=== PATIENT | female | born 1955 | race African-American/Black ===

== ENCOUNTER 2016-07-18 12:40 | Emergency (ER) ==
[2016-07-18 13:05] VITALS: BP 145/103
--- NOTE | 2016-07-18 15:03 | PROVIDER DOCUMENTATION ---
HPI-EENT General - General Source: patient <AmnaAnnemarie - Last Filed: 07/18/16 16:04> - History of Present Illness-EENT General EENT Location: reports: nose, throat, facial Quality of Pain: reports: pressure Severity: reports: mild Onset/Duration: reports: 3 days ago Timing: reports: still present, getting worse Prearrival Treatment: Initiated no prearrival treatment Associated Symptoms: reports: cough, facial pain/swelling <MedinaMitra Jonatan. - Last Filed: 07/18/16 19:35> - General Chief Complaint: Cold Symptoms Stated Complaint: COUGH Time Seen by Provider: 07/18/16 15:11 Allergies/Adverse Reactions: Patient Allergies Allergy/AdvReac Type Severity Reaction Status Date / Time No Known Allergies Allergy Verified 02/18/16 10:14 Home Medications: Home Medication List Medication Instructions Recorded Confirmed Last Taken Type Hydrocodone/APAP 10 mg/325 mg 1 each PO Q4H PRN #15 tablet 02/25/16 Unknown Rx [[facility]-10] Amoxicillin [Amoxil] 875 mg PO Q12HR #20 tablet 07/18/16 Unknown Rx Methylprednisolone [Medrol Dosepak] 4 mg PO DIRECTED #1 package 07/18/16 Unknown Rx - History of Present Illness-EENT General Nature of Presenting Problem: 61 yo F presents to the ER with complaint of cold symptoms and sinus pressure/ drainage. (Annemarie Woo) Review of Systems - Adult - REVIEW OF SYSTEMS - ADULT Constitutional: denies: chills, fever Ears, Nose, Mouth & Throat: reports: other (sinus pressure). denies: ear pain, throat pain Cardiovascular: denies: chest pain, palpitations Respiratory: reports: cough. denies: shortness of breath Gastrointestinal: denies: diarrhea, nausea, vomiting <Annemarie Woo - Last Filed: 07/18/16 16:04> Past History - Adult - PAST MEDICAL HISTORY-ADULT Review of Records: reports: Nursing Assessment Review, Medications Reviewed - PRIOR SURGERIES/PROCEDURES Surgical/Procedure History: reports: other (nephrectomy) - IMMUNIZATION STATUS Childhood Immunizations: See Nurse Assessment Flu Vaccine: See Nurse Assessment <Annemarie Woo - Last Filed: 07/18/16 16:04> Physical Exam- EENT - Physical Exam EENT Initial Vital Signs Reviewed: Yes General Appearance: appears well, alert, no apparent distress Eye Exam: bilateral eye: normal inspection, PERRL, EOMI Nasal Exam: sinus tenderness Throat Exam: other (pharyngeal erythematous) Respiratory: lungs clear, normal breath sounds, no respiratory distress Cardiovascular: normal peripheral pulses Back Exam: normal inspection Extremity: normal gait Integumentary: normal color, normal turgor, warm/dry Neurologic: grossly normal Psych/Mental Status: normal mood/affect, normal thought content, normal thought process, oriented x 3 <Mitra Haney - Last Filed: 07/18/16 19:35> Progress <Annemarie Woo - Last Filed: 07/18/16 16:04> <Mitra Haney. - Last Filed: 07/18/16 19:35> - PLAN OF CARE/RESULTS Progress/Plan/Lab Results: 1515-Discussed results/dx/tx/discharge and follow up instructions with patient; he verbalizes understanding. Laboratory Tests 07/18/16 13:00 Influenza A (Rapid) NEGATIVE Influenza B (Rapid) NEGATIVE Orders Category Date Time Status Flu [INFLUENZA SCREEN PL] Stat Lab 07/18/16 13:00 Completed Vital Signs - 24 hr 07/18/16 13:03 Temperature 98 F Pulse Rate 84 Respiratory 18 Rate Blood Pressure 145/103 O2 Sat by Pulse 98 Oximetry (MedinaAugustMaty) Departure <Annemarie Woo - Last Filed: 07/18/16 16:04> - Departure Time of Disposition Order: 15:19 Certified Medical Emergency: Emergent <MedinaAugust. - Last Filed: 07/18/16 19:35> - Departure DIAGNOSIS: Post-nasal drip, Cough Sinusitis, acute Qualifiers: Sinusitis location: unspecified location Recurrence: non-recurrent Qualified Code(s): J01.90 - Acute sinusitis, unspecified Disposition: HOME 01 Condition: Good Additional Instructions: Follow up with primary care doctor. Take medications as prescribed. Use an over the counter saline nasal spray. ED Follow Up Instructions: You have been treated by a care provider in the Emergency Department. These instructions are being provided to you so you can have an understanding of how to care for yourself upon discharge. Upon discharge from the Emergency Department, you are responsible for making arrangements for follow-up care by a physician of your choice. Take all prescribed medications as directed. Return to the Emergency Department immediately for any new or worsening symptoms. You may call the Physician Referral phone number at [phone] to obtain a list of Physicians who are taking new patients. Prescriptions: Amoxicillin [Amoxil] 875 mg PO Q12HR #20 tablet Methylprednisolone [Medrol Dosepak] 4 mg PO DIRECTED #1 package Referrals: None,PCP [Primary Care Provider] - Kelly Chew MD [STAFF PHYSICIAN] - Forms: Return to School/Parent Work Instructions: Amoxicillin capsules or tablets, Sinusitis, Adult, Cough, Adult, Methylprednisolone tablets Attestation - Scribe Verification/Attestation Scribe:: Annemarie Woo Acting as Scribe for:: Mitra Haney Scribe documention review:: This chart was documented by a scribe and accurately reflects the service the provider performed and the decisions made by the provider. <Annemarie Woo - Last Filed: 07/18/16 16:04> - Physician/ RHEA Attestation Patient care was provided by Advanced Practice Provider:: Yes Advanced Practice Provider:: Mitra Haney Advanced Practice Provider documentation review:: The Mid-level provider documentation, treatment plan and medical decision making was reviewed by the physician who agrees with all treatment and medical decision making by the MLP. <Mitra Haney - Last Filed: 07/18/16 19:35> Physician Attestation
== END 2016-07-18 15:31 | disposition home or self-care (01) ==
LOC: P.ED 12:40
DX: J01.90 Acute sinusitis, unspecified (principal); R05 Cough; R09.82 Postnasal drip
CPT/HCPCS: 87804; 99283

== ENCOUNTER 2016-08-05 11:35 | Emergency (ER) ==
[2016-08-05] MEDS ORDERED: NORCO-10 PO ONE (12:33)
[2016-08-05] MEDS ORDERED: FLEXERIL PO ONE (12:33)
--- NOTE | 2016-08-05 12:45 | PROVIDER DOCUMENTATION ---
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 States she was walking down the stairs, got to the second to last stair, and the sock slipped. /the right ankle turned inwards and having swelling and pain in the ankle now. Has not been able to bare weight on the ankle. Denies hitting head, loc or other injuries. Pain on the medial and lateral aspects. Review of Systems - Adult - REVIEW OF SYSTEMS - ADULT Constitutional: reports: no symptoms reported. denies: chills, fever, fatique Eyes: reports: no symptoms reported. denies: decreased vision, blurred vision, double vision, eye pain Ears, Nose, Mouth & Throat: reports: no symptoms reported. denies: ear pain, nose pain, throat pain Cardiovascular: reports: no symptoms reported. denies: chest pain, palpitations Respiratory: reports: no symptoms reported. denies: cough, shortness of breath , wheezing Gastrointestinal: reports: no symptoms reported. denies: abdominal pain, diarrhea, nausea, vomiting Genitourinary: reports: no symptoms reported Musculoskeletal: reports: see HPI, joint pain, joint swelling. denies: bone pain, back pain Integumentary: reports: no symptoms reported. denies: rash Neurological: reports: no symptoms reported. denies: headache/migraines Psychiatric: reports: no symptoms reported Endocrine: reports: no symptoms reported Hematologic/Lymphatic: reports: no symptoms reported Allergic/Immunologic: reports: no symptoms reported All Other Systems: Reviewed and Negative Past History - Adult - PAST MEDICAL HISTORY-ADULT Review of Records: reports: Old Records Reviewed, Nursing Assessment Review, Medications Reviewed Major Childhood Illnesses: reports: denies history Cardiovascular: reports: denies history Respiratory: reports: denies history Gastrointestinal: reports: denies history Obstetrical/Gynecological: reports: denies history Genitourinary: reports: cancer (RCC s/p nephrectomy ) Musculoskeletal: reports: denies history Neurological: reports: denies history Endocrine/Immune: reports: denies history Other Conditions: reports: denies history - PRIOR SURGERIES/PROCEDURES Surgical/Procedure History: reports: other (nephrectomy) - IMMUNIZATION STATUS Childhood Immunizations: See Nurse Assessment Flu Vaccine: See Nurse Assessment - FAMILY HISTORY Family History: reviewed, not pertinent - SOCIAL HISTORY Smoking: denies Substance Use: none/never Alcohol Use Frequency: rarely Living Situation: family Physical Exam-Injury Related - Physical Exam-Injury Related Initial Vital Signs Reviewed: Yes General Appearance: appears well, alert, no apparent distress Eyes: PERRL/EOMI, pink conjunctivae Head, Ears, Nose, Mouth & Throat: normocephalic/atraumatic, moist mucous membranes Neck: non-tender, full range of motion, supple, normal inspection Respiratory: chest non-tender, lungs clear, normal breath sounds, no pleuratic chest pain, no respiratory distress, no accessory muscle use. negative: respiratory distress, decreased breath sounds, accessory muscle use, crackles, rales, rhonchi, stridor, wheezing Cardiovascular: normal peripheral pulses, regular rate, rhythm, no edema Peripheral Pulses: dorsalis-pedis (R): 2+, dorsalis-pedis (L): 2+ Extremity: other (right ankle: dec rom secondary to pain, , pulses 2+ equal and bilaterally. Neurovascularly intact.) Integumentary: normal color, warm/dry Neurologic: grossly normal, no motor/sensory deficits Psych/Mental Status: normal mood/affect, normal thought content, normal thought process, oriented x 3 - Glascow Coma Score Best Eye Response (Foster): (4) open spontaneously Best Verbal Response (Foster): (5) oriented Best Motor Response (Foster): (6) obeys commands Progress - PLAN OF CARE/RESULTS Progress/Plan/Lab Results: Vital Signs Temp Pulse Resp BP Pulse Ox 08/05/16 14:49 97.0 F L 70 18 156/96 100 08/05/16 11:41 98 F 87 18 137/75 100 No Known Allergies Allergy (Verified 02/18/16 10:14) Hydrocodone/APAP 10 mg/325 mg [Sims-10] 1 each PO Q6H PRN PRN #20 tablet Orders Category Date Time Status Crutches DIRECTED Care 08/05/16 14:07 Active OCL Splint DIRECTED Care 08/05/16 13:50 Active ANKLE COMPLETE RIGHT [RAD] Stat Exams 08/05/16 11:46 Completed ANKLE COMPLETE RIGHT [RAD] Stat Exams 08/05/16 13:40 Completed Bupivacaine Pf 0.5% [Marcaine 0.5% Pf] Med 08/05/16 12:55 Discontinued 10 ml INJ NOW ONE Cyclobenzaprine [Flexeril] Med 08/05/16 12:33 Discontinued 10 mg PO NOW ONE Hydrocodone/APAP 10 mg/325 mg [Sims-10] Med 08/05/16 12:33 Discontinued 1 each PO NOW ONE Hydromorphone [Dilaudid] Med 08/05/16 12:56 Discontinued 2 mg IM NOW ONE - XRAY 1 XRAY: Right XRAY Study: Ankle Impression: Abnormal (fracture and dislocation with 20 degrees of displacement of the distal fibula, Dr. Wagner, radiology) 2 XRAY: Right XRAY Study: Ankle Impression: Abnormal (fracture of distal fibula, dilcoation reduced per Dr. Guevara ER prelim) - CONSULTS/PCP/HOSPITALIST Notification #1 *Consult/PCP/Hospitalist*: Dr. Caban, ortho Time Discussed: 12:58 Reason/Comments: fracture dislocation Consult Disposition: F/U in office (reduce dislocation and splint, f/u in office.) Procedures - SPLINTING Right Lower Extremity Pre-Procedure Neurovascular Exam: Intact Splint Application (Hand-Made): Orthoglass, Posterior OCL, Stir-Up Applied By: ED Nurse Assisted By: ED Nurse Post Procedure Neurovascular Exam: Intact Procedure Comment: crutches given - DISLOCATION REDUCTION Right Ankle Time-Out Verification Completed?: Yes Pre-Procedure Neurovascular Exam: Intact Conscious Sedation: No Reduction Attempts: 1 Post Procedure Neurovascular Exam: Intact Post Reduction Film: Deformity Reduced (dislocation reduced per Dr. Guevara) Post Reduction Splint Applied?: Yes Procedure Comment: hematoma block performed with Marcaine 0.5 % 10 mL Departure - Departure Time of Disposition Order: 14:09 DIAGNOSIS: Closed fracture of distal end of fibula Qualifiers: Encounter type: initial encounter Fracture morphology: other fracture Laterality: right Qualified Code(s): S82.831A - Other fracture of upper and lower end of right fibula, initial encounter for closed fracture Dislocation of distal end of right tibia Qualifiers: Encounter type: initial encounter Qualified Code(s): S93.04XA - Dislocation of right ankle joint, initial encounter Fall Qualifiers: Encounter type: initial encounter Qualified Code(s): W19.XXXA - Unspecified fall, initial encounter Disposition: HOME 01 Certified Medical Emergency: Emergent Condition: Stable Additional Instructions: Remain non-weight baring Follow up with Dr. Caban, orthopedic ED Follow Up Instructions: You have been treated by a care provider in the Emergency Department. These instructions are being provided to you so you can have an understanding of how to care for yourself upon discharge. Upon discharge from the Emergency Department, you are responsible for making arrangements for follow-up care by a physician of your choice. Take all prescribed medications as directed. Return to the Emergency Department immediately for any new or worsening symptoms. You may call the Physician Referral phone number at [phone] to obtain a list of Physicians who are taking new patients. Prescriptions: Hydrocodone/APAP 10 mg/325 mg [Sims-10] 1 each PO Q6H PRN PRN #20 tablet PRN Reason: Pain Referrals: None,PCP [Primary Care Provider] - Jairo Caban MD [STAFF PHYSICIAN] - Instructions: Acetaminophen; Hydrocodone tablets or capsules, Fibular Fracture , Ankle, Adult, Undisplaced, Treated with Immobilization Attestation - Physician/ RHEA Attestation Patient care was provided by Advanced Practice Provider:: Yes Advanced Practice Provider:: Ernestina Barron Advanced Practice Provider documentation review:: The Mid-level provider documentation, treatment plan and medical decision making was reviewed by the physician who agrees with all treatment and medical decision making by the MLP.
--- NOTE | 2016-08-05 12:48 | Diag Imaging Result Document ---
PROCEDURE NAME: ANKLE COMPLETE RIGHT - 08/05/2016 RIGHT ANKLE, THREE VIEWS: FINDINGS: There is an oblique fracture through the distal fibula with approximately 20 degrees of angulation. The tibia is displaced medially from its normal location with the talus. I believe there is a fracture through the posterior tibia with slight compaction. IMPRESSION: Fractures and dislocation at the ankle.
[2016-08-05] MEDS ORDERED: MARCAINE 0.5% PF INJ ONE (12:55)
[2016-08-05] MEDS ORDERED: DILAUDID IM ONE (12:56)
--- NOTE | 2016-08-05 14:25 | Diag Imaging Result Document ---
PROCEDURE NAME: ANKLE COMPLETE RIGHT - 08/05/2016 PLAIN RADIOGRAPH OF THE RIGHT ANKLE 3 VIEWS: COMPARISON: 08/05/2016. FINDINGS: There has been interval placement of casting material, which somewhat obscures the right ankle. The angulated fracture involving the distal fibula is again noted. The degree of angulation has changed very little, if any since the previous study. As on the previous study, there is still widening of the ankle mortise medially. The more questionable nondisplaced fracture at the posterior aspect of the distal tibia is unchanged. IMPRESSION: Essentially stable ankle fracture-dislocation status post casting.
[2016-08-05 14:50] VITALS: BP 156/96
== END 2016-08-05 14:49 | disposition home or self-care (01) ==
LOC: P.ED 11:35
DX: S82.831A Other fracture of upper and lower end of right fibula, initial encounter for closed fracture (principal); S93.04XA Dislocation of right ankle joint, initial encounter; M25.571 Pain in right ankle and joints of right foot; M25.471 Effusion, right ankle; Z85.528 Personal history of other malignant neoplasm of kidney; Z90.5 Acquired absence of kidney; W01.0XXA Fall on same level from slipping, tripping and stumbling without subsequent striking against object, initial encounter
CPT/HCPCS: 96372; J1170; S0020

== ENCOUNTER 2016-08-10 07:50 | Day surgery (SDC) ==
[2016-08-10] MEDS ORDERED: LR 1,000 ML ONE ×2 (08:18→12:07)
[2016-08-10] MEDS ORDERED: PEPCID ONE (08:18)
[2016-08-10] MEDS ORDERED: REGLAN ONE (08:18)
[2016-08-10] MEDS ORDERED: KEFZOL 2 GM/D5W 50 ML ONE (08:19)
[2016-08-10 09:41] LABS: MANUAL DIFF NEEDED? NO
[2016-08-10 09:44] LABS: BASO% 0.4 % (0.0-0.8); EOS# 0.13 X1000 (0.0-0.7); EOS% 2.4 % (0.0-10.0); HEMATOCRIT 33.1 % (37.0-47.0); HEMOGLOBIN 10.8 g/dL (12.0-16.0); LYMPH# 1.89 X1000 (1.2-3.4); MCHC 32.6 g/dL (33-37); MCV 97.9 FL (81-99); MONO# 0.46 X1000 (0.11-0.59); MONO% 8.5 % (1.7-9.3); MPV 9.7 FL (7.4-10.4); NEUT% 53.7 % (42.2-75.2); PLT 232 X1000 (130-400); RBC 3.38 XMIL (4.2-5.4)
[2016-08-10] MEDS ORDERED: NEOSPORIN G.U. IRRIGANT ONE (10:00)
[2016-08-10] MEDS ORDERED: SENSORCAINE 0.5%-EPI 1:200,000 ONE (10:00)
[2016-08-10] MEDS ORDERED: HYDROGEN PEROXIDE SOLUTION ONE (11:39)
[2016-08-10] MEDS ORDERED: FENTANYL ONE (11:57)
[2016-08-10] MEDS ORDERED: DIPRIVAN 1% ONE (11:57)
[2016-08-10] MEDS: PHENERGAN ONE ×2 (12:03→12:23)
[2016-08-10] MEDS ORDERED: DEMEROL ONE ×2 (12:03→12:23)
[2016-08-10] MEDS ORDERED: ZOFRAN ONE (12:07)
[2016-08-10] MEDS ORDERED: XYLOCAINE-MPF 2% ONE (12:07)
[2016-08-10] MEDS ORDERED: DECADRON ONE (12:07)
[2016-08-10] MEDS ORDERED: NORCO-10 ONE (12:51)
[2016-08-10 13:20] VITALS: BP 124/90
--- NOTE | 2016-08-10 16:31 | OPERATIVE NOTE ---
PROCEDURE DATE: 08/10/2016 PREOPERATIVE DIAGNOSIS: Right comminuted lateral malleolus fracture with medial joint space widening. POSTOPERATIVE DIAGNOSIS: Right comminuted lateral malleolus fracture with medial joint space widening. PROCEDURE PERFORMED: Open reduction internal fixation of right comminuted lateral malleolus fracture. SURGEON: Carlos Caban MD [facility] PARTNER: XAVIER Marsh ANESTHESIA: General. COMPLICATIONS: None. BLOOD LOSS: Minimal. TOURNIQUET TIME: Approximately an hour and a half. DESCRIPTION OF PROCEDURE: The patient was brought to the operating suite and placed in the supine position. After successful administration of general anesthesia, a well-padded tourniquet was placed on the right proximal thigh. The right lower extremity was prepped and draped in the usual sterile fashion. The leg was exsanguinated. The tourniquet was insufflated to 350 torr. A longitudinal incision was made overlying the lateral malleolus. This was dissected sharply through the skin and subcutaneous tissue to the fascia. The fascia was incised, protecting the superficial peroneal nerve. The fracture site was cleaned. There was a comminuted piece anteriorly that was reduced to the lateral malleolus and then was secured with an interface screw and then the main shaft of the fibula and the lateral malleolus was secured with another interference screw. The Synthes distal fibular locking plate was placed with 4 locking screws distally and 4 bicortical screws proximally, 3 of them locking. Excellent reduction of the fracture was obtained on AP and lateral images. The wound was copiously irrigated. The fascia was closed with 0 Vicryl. The skin edge was approximated with 2-0 Vicryl. The skin was closed with interrupted 4-0 nylon sutures. The wound was injected with Marcaine. A sterile dressing and well-padded posterior splint with a stirrup were applied. The patient tolerated the procedure well without complication. At the end of the procedure, all counts were correct x2. The patient was transferred to the recovery room in stable condition.
== END 2016-08-10 13:20 | disposition home or self-care (01) ==
LOC: OR 07:50
PROVIDERS: ATTEND Orthopaedic Surgery
DX: S82.61XA Displaced fracture of lateral malleolus of right fibula, initial encounter for closed fracture (principal); M25.571 Pain in right ankle and joints of right foot; M25.471 Effusion, right ankle; W10.9XXD Fall (on) (from) unspecified stairs and steps, subsequent encounter; M19.90 Unspecified osteoarthritis, unspecified site; Z90.5 Acquired absence of kidney; Z85.528 Personal history of other malignant neoplasm of kidney
CPT/HCPCS: 76000; 85025; J0690; J1100; J2175; J2405; J2550; J3010; J7120